=== PATIENT | male | born 2000 | race African-American/Black ===

== ENCOUNTER 2024-02-17 15:32 | Emergency (ER) | payer SELFPAY ==
[2024-02-17 15:44] VITALS: BP 155/74; PULSE 55; RESP 16; TEMP 98.3; BMI 24.6
== END 2024-02-17 16:59 | disposition home or self-care (01) ==
LOC: JER 15:32
DX: R55 Syncope and collapse (principal); R42 Dizziness and giddiness
CPT/HCPCS: 82962; 93005; 93010; 99284-25